=== PATIENT | male | born 1985 | race Caucasian/White ===

== ENCOUNTER 2025-02-19 11:38 | Emergency (ER) | payer MEDICAID ==
[~2025-02-19] VITALS: Ht 167.6 cm; Wt 79.0 kg
[~2025-02-19 11:38] MED LIST: AMOX1TAB16 MT; HYDR-4001 MT; THIA100T72 MT
[2025-02-19 11:47] VITALS: O2SAT 100
[2025-02-19 17:45] LABS: BASOPHILS % 1.0 % (0.0-2.0); EOSINOPHILS % 1.8 % (0.0-5.0); HEMATOCRIT. 34.4 % (42.0-52.0); HEMOGLOBIN. 11.6 g/dL (14.0-18.0); LYMPHOCYTES % 23.1 % (20.0-50.0); MEAN PLATELET VOLUME 7.4 fl (7.4-10.4); MONOCYTES % 8.4 % (2.0-8.0); NEUTROPHILS % 65.7 % (40.0-76.0); PLATELET 83 x1000/uL (130-400); RED BLOOD CELL COUNT 3.65 mill/uL (4.7-6.1); RED CELL DISTRIBUTION WIDTH 16.6 % (11.6-14.6)
[2025-02-19 17:58] LABS: CREATININE 0.6 mg/dL (0.6-1.3); UREA NITROGEN BLOOD 10 mg/dL (9-23)
[2025-02-19] MEDS: KETOROLAC 15MG/ML VIAL IV ONE (18:50)
[2025-02-19] MEDS ORDERED: AMOX1TAB16 MT (21:12)
[2025-02-19] MEDS ORDERED: CEPH500T MT (21:12)
[2025-02-19] MEDS ORDERED: ERYT60SO16 TP (21:12)
[2025-02-19 21:26] VITALS: BP 109/62; PULSE 98; RESP 22; TEMP 36.6; O2SAT 100
[2025-02-19] MEDS ORDERED: IOHEXOL-300 100 ML BOTTLE ONE (23:36)
== END 2025-02-19 21:28 | disposition home or self-care (01) ==
LOC: ER 11:38 → CMPBEDREQ 02-20 10:51
DX: M25.511 Pain in right shoulder (principal); H53.8 Other visual disturbances; F12.90 Cannabis use, unspecified, uncomplicated
CPT/HCPCS: 99285; 96374; 70481; 80048; 85025; 36415; 73030; J1885; Q9967